=== PATIENT | male | born 1950 | race Caucasian/White ===

== ENCOUNTER 2022-05-10 16:00 | Emergency (ER) | payer MEDICARE, OTHER ==
[~2022-05-10] VITALS: Ht 167.6 cm; Wt 100.8 kg
[2022-05-10] MEDS ORDERED: CEPHALEXIN500 MG PO (16:43)
[2022-05-10] MEDS ORDERED: BACITRACIN ZINC 0.9GM TP ONE (17:00)
[2022-05-10] MEDS ORDERED: LIDOCAINE HCL 1% LOCAL INJ 20 ML VIAL INJ ONE (17:00)
== END 2022-05-10 16:47 | disposition home or self-care (01) ==
LOC: FSED 16:16
DX: S61.411A Laceration without foreign body of right hand, initial encounter (principal); W18.39XA Other fall on same level, initial encounter; Y92.89 Other specified places as the place of occurrence of the external cause; Z96.653 Presence of artificial knee joint, bilateral; F17.210 Nicotine dependence, cigarettes, uncomplicated
CPT/HCPCS: 96372; 99283